=== PATIENT | female | born 1935 | race Caucasian/White ===

== ENCOUNTER 2017-08-11 06:35 | Emergency (ER) | payer OTHER ==
[~2017-08-11] VITALS: Ht 147.3 cm; Wt 68.0 kg
[~2017-08-11 06:35] MED LIST: ASPIRIN81 M1 PO; BACTRIM DS 8001 TA1 PO; COLACE100 MG PO; DURAGESIC; GLIPIZIDE5 MG PO; HYDROCODONE BIT1 T11 PO; K-DUR 2020 MEQ PO; KEFLEX500 MG PO; LIPITOR10 MG PO; METFORMIN1000 MG PO; MIRALAX17 GM/DOSE PO; NICOTINE; NUCYNTA50 MG PO; OXYCODONE5 MG PO; PERCOCET 325 MG1 TA2 PO; RAMIPRIL5 MG PO; VITAMIN D50000 I2 PO
[2017-08-11] MEDS ORDERED: NORCO 10-325 T1 EACH PO (09:20)
== END 2017-08-11 09:44 | disposition home or self-care (01) ==
LOC: ED 06:35
DX: S22.088A Other fracture of T11-T12 vertebra, initial encounter for closed fracture (principal); Z90.710 Acquired absence of both cervix and uterus; Z96.653 Presence of artificial knee joint, bilateral; Z98.890 Other specified postprocedural states; Z79.899 Other long term (current) drug therapy; W19.XXXA Unspecified fall, initial encounter; Y93.89 Activity, other specified; Y92.099 Unspecified place in other non-institutional residence as the place of occurrence of the external cause; Y99.9 Unspecified external cause status

== ENCOUNTER 2017-08-16 05:41 | Inpatient (IN) | payer OTHER, MEDICAID ==
[~2017-08-16] VITALS: Ht 147.3 cm; Wt 71.0 kg
[2017-08-16] VITALS (8 sets, daily range): BP systolic 122–154; BP diastolic 46–95
--- NOTE | ~2017-08-16 | O ---
[place], [place] OPERATIVE NOTE NAME: FREDIS PHILLIP UNIT #: [id number] ROOM: [facility] DOCTOR: TERESA TALBOT MD BIRTHDATE: [birth year] DOS: 08/18/2017 INDICATION: An 81-year-old patient who presented with a chief complaint of black tarry stool, undergoing investigation. The patient had to be transfused to be stabilized and brought to operating room for endoscopic assessment after stabilization. PROCEDURE: Today's procedure part of investigation is panendoscopy plus biopsy. PREMEDICATION: Versed and Diprivan. SCOPE: Olympus forward-viewing gastroscope Q10 video. REPORT: After putting the patient in left lateral position and application of lubricant to the scope, the scope was introduced. Thereafter, under direct visualization, advanced through the length of esophagus without difficulty. As I approached esophagogastric junction, evidence of esophagitis converse to reflux, distal esophageal ulcerations. With care, the scope was negotiated into his gastric chamber and large volume of the gastric secretions are mixed with blood was suctioned out to prevent aspiration. As I approached toward the antrum, noticed numerous deeply scarred ulcerations and as I negotiated the scope toward the pyloric ring, large clot obstructing the gastric outlet. This was not dismantled. Biopsy and photographic series obtained from numerous ulcers and the patient was extubated, tolerated procedure well. 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 PLAN AND DISCUSSION: We are going to keep this patient on PPI, transfusion and stabilization and we are going to organize a transfer to tertiary center in case surgical exploration becomes eminent. [place], [place] OPERATIVE NOTE NAME: FREDIS PHILLIP UNIT #: [id number] ROOM: [facility] DOCTOR: TERESA TALBOT MD BIRTHDATE: [birth year] TERESA TALBOT MD CM:OPRECORD:OPERATIVE NOTE [id number] TERESA TALBOT MD 08/18/171854 interface
--- NOTE | ~2017-08-16 | CON ---
[place], [place] REPORT OF CONSULTATION NAME: FREDIS PHILLIP UNIT #: [id number] ROOM: [facility] DOCTOR: TERESA TALBOT MD BIRTHDATE: [birth year] DOS: 08/18/2017 GASTROENDOSCOPY CONSULTATION HISTORY OF PRESENT ILLNESS: This is an 81-year-old patient who has been admitted with black tarry stool, undergoing investigation. The patient's H and H was 10 and 32 and has dropped and she continued to have black stool. She is status post transfusion, H and H stopped at 8 and 26. On comprehensive metabolic panel, electrolytes, potassium of 3.3 has been addressed. Liver function test normal. Her albumin is 2.7. Chest x-ray, cardiomegaly with mild pulmonary congestion. Troponin was negative. Her recent CT scan of the abdomen and pelvis without contrast was assessed and mild stranding about the gastric antrum and proximal duodenum, possibility of ulceration in differential diagnosis, also diverticulosis without evidence of diverticulitis identified. PAST MEDICAL HISTORY: Hypertension, hyperglycemia, cystocele, hyperlipidemia, and lumbar disk. PAST SURGICAL HISTORY: Bladder, knee arthroscopies, cholecystectomy, and hysterectomy. SOCIAL HISTORY: Nonsmoker and nonalcohol consumer. FAMILY HISTORY: Noncontributory. ALLERGIES: To no known medications. MEDICATIONS: List reviewed and on the list of home medication, I did not see any offending recorded anticoagulants. REVIEW OF SYSTEMS: HEENT: Denies double vision, blurred vision. RESPIRATORY: Denies acute shortness of breath. CARDIOVASCULAR: Denies acute chest pain. DIGESTIVE SYSTEM: Black tarry stool. No hematemesis. PHYSICAL EXAMINATION: VITAL SIGNS: Stable. GENERAL: Pale patient, appropriate for the age. HEENT: Head normocephalic, nontraumatic. Mouth and buccal mucosa benign. NECK: Supple. No thyromegaly, no cervical lymphadenopathy. CHEST: Symmetric anatomy. No wheeze, no rhonchi. HEART: Normal sinus rhythm. No gallop, no murmur. ABDOMEN: Soft. No hepato-organomegaly. Bowel sounds present. EXTREMITIES: Dry. No cyanosis, no pedal edema. NEUROLOGIC: Alert and oriented. LABORATORY DATA: Labs reviewed, records reviewed, data reviewed. IMPRESSION: Gastrointestinal bleed, drop in hemoglobin and hematocrit, status [place], [place] REPORT OF CONSULTATION NAME: FREDIS PHILLIP UNIT #: [id number] ROOM: [facility]- DOCTOR: ANTIONE PANDEY,TERESA BIRTHDATE: [birth year] post transfusion. PLAN AND DISCUSSION: We are going to organize endoscopy of upper GI, ruling out peptic ulcer disease with abnormalities related to the CT scan as outlined. In addition, we are going to consider treatment of E. coli with UTI of greater than 100, antibiotic on board. Endoscopy today and reassessment. OTHER ADJUNCTIVE DIAGNOSES: As outlined in paragraph of past medical and surgical history. Thank you very much indeed for your kind referral. TERESA TALBOT MD CM:CONSTR:REPORT OF CONSULTATION 1728 08/19/17 0303 interface
[~2017-08-16 05:41] MED LIST changes: +NORCO 10-325 T1 EACH PO
[2017-08-16 06:19] LABS: BASO % 0.3 % (0.0-1.0); EOS # 0.2 10*3/uL (0.0-0.4); HEMATOCRIT 32.8 % (37.0-47.0); HEMOGLOBIN 10.8 g/dl (12.0-16.0); LYMPH % 17.7 % (27.0-41.0); MEAN CELL VOLUME 101.9 fl (81.0-99.0); MEAN CORPUSCULAR HGB 33.5 pg (27.0-31.0); MEAN CORPUSCULAR HGB CONC 32.9 g/dl (33.0-37.0); MEAN PLATELET VOLUME 10.4 fl (9.6-12.3); MONO # 0.7 10*3/uL (0.1-1.0); NEUT # 8.3 10*3/uL (2.3-7.9); NEUT % 73.7 % (47.0-73.0); PLATELET COUNT AUTOMATED 216 10*3/uL (130-400); RED BLOOD COUNT 3.22 10*6/uL (4.10-5.10); RED CELL DISTRI WIDTH 12.9 % (0-14.5); WHITE BLOOD COUNT 11.2 10*3/uL (4.8-10.8)
[2017-08-16 06:28] LABS: ACT PARTIAL THROMBO TIME 31.2 SECONDS (20.8-31.5)
[2017-08-16 06:41] LABS: ALBUMIN 2.7 gm/dl (3.1-4.5); ALKALINE PHOSPHATASE 105 U/L (45-117); BUN 27 mg/dl (7-24); CHLORIDE 108 mmol/L (98-107); POTASSIUM 3.3 mmol/L (3.5-5.1); SGOT/AST 14 IU/L (3-35); SGPT/ALT 16 U/L (12-78); SODIUM 142 mmol/L (136-145); TOTAL PROTEIN 6.2 gm/dL (6.4-8.2); TROPONIN I < 0.015 ng/ml (<0.045)
[2017-08-16 08:56] LABS: BILIRUBIN NEGATIVE (NEGATIVE); BLOOD 3+ (NEGATIVE); CLARITY SL CLOUDY (CLEAR); COLOR YELLOW (YELLOW); GLUCOSE NEGATIVE (NEGATIVE); KETONE TRACE (NEGATIVE); LEUKO ESTERASE TRACE (NEGATIVE); NITRITE POSITIVE (NEGATIVE); PH 6.5 (5.0-9.0); SPECIFIC GRAVITY <= 1.005 (1.005-1.030); UROBILINOGEN 0.2 E.U./dl (0.2-1.0)
[2017-08-16 09:05] LABS: BACTERIA 4+; EPITHELIAL CELLS 15-20
[2017-08-16 09:07] LABS: RBC 21-30 rbc/hpf (0-2); WBC 31-40 wbc/hpf (0-5)
[2017-08-16] MEDS ORDERED: NORCO 10-325 T1 EACH PO (19:48)
[2017-08-17] VITALS: BP 128/58
[2017-08-17 06:52] LABS: BASO % 0.3 % (0.0-1.0); EOS # 0.7 10*3/uL (0.0-0.4); EOS % 7.4 % (1.0-4.0); HEMATOCRIT 30.7 % (37.0-47.0); HEMOGLOBIN 9.9 g/dl (12.0-16.0); LYMPH # 1.5 10*3/uL (1.3-4.4); LYMPH % 16.8 % (27.0-41.0); MEAN CELL VOLUME 104.8 fl (81.0-99.0); MEAN CORPUSCULAR HGB 33.8 pg (27.0-31.0); MEAN CORPUSCULAR HGB CONC 32.2 g/dl (33.0-37.0); MEAN PLATELET VOLUME 10.6 fl (9.6-12.3); MONO # 0.5 10*3/uL (0.1-1.0); MONO % 5.5 % (3.0-9.0); NEUT # 6.2 10*3/uL (2.3-7.9); NEUT % 69.5 % (47.0-73.0); PLATELET COUNT AUTOMATED 226 10*3/uL (130-400); RED BLOOD COUNT 2.93 10*6/uL (4.10-5.10); RED CELL DISTRI WIDTH 12.7 % (0-14.5); WHITE BLOOD COUNT 8.9 10*3/uL (4.8-10.8)
[2017-08-17 07:14] LABS: BUN 21 mg/dl (7-24); CHLORIDE 108 mmol/L (98-107); CHOLESTEROL 111 mg/dL (<200); CREATININE 0.77 mg/dL (0.55-1.02); PHOSPHOROUS 2.4 mg/dL (2.5-4.9); POTASSIUM 3.5 mmol/L (3.5-5.1); SODIUM 143 mmol/L (136-145)
[2017-08-17 07:22] LABS: FREE T4 1.06 ng/dl (0.76-1.46); HDL CHOLESTEROL 40 mg/dl (40-60); LDL CHOLESTEROL 50 mg/dL (9-159); TRIGLYCERIDES 107 mg/dl (<150); VLDL CHOLESTEROL 21 mg/dL (6-40)
[2017-08-17 08:00] VITALS: BP 124/50
[2017-08-17 08:18] LABS: VITAMIN D, 25-HYDROXY 48.3 ng/mL (30-100)
[2017-08-17 12:00] VITALS: BP 131/48
[2017-08-17 16:00] VITALS: BP 153/42
[2017-08-17] MEDS ORDERED: AMBIEN10 M1 PO (16:10)
[2017-08-17] MEDS ORDERED: IBU800 M1 PO (16:11)
[2017-08-17] MEDS ORDERED: ARICEPT5 M1 PO (16:12)
[2017-08-17] MEDS ORDERED: MIRAPEX0.5 MG PO (16:12)
[2017-08-17 19:46] VITALS: BP 150/61
[2017-08-18] VITALS (9 sets, daily range): BP systolic 143–158; BP diastolic 46–57
[2017-08-18 05:58] LABS: BUN 26 mg/dl (7-24); CHLORIDE 104 mmol/L (98-107); CREATININE 0.67 mg/dL (0.55-1.02); POTASSIUM 3.6 mmol/L (3.5-5.1); SODIUM 143 mmol/L (136-145)
[2017-08-18 06:02] LABS: BASO % 0.3 % (0.0-1.0); HEMATOCRIT 30.2 % (37.0-47.0); HEMOGLOBIN 9.8 g/dl (12.0-16.0); LYMPH # 1.9 10*3/uL (1.3-4.4); LYMPH % 16.1 % (27.0-41.0); MEAN CELL VOLUME 102.4 fl (81.0-99.0); MEAN CORPUSCULAR HGB 33.2 pg (27.0-31.0); MEAN CORPUSCULAR HGB CONC 32.5 g/dl (33.0-37.0); MEAN PLATELET VOLUME 10.9 fl (9.6-12.3); MONO # 0.4 10*3/uL (0.1-1.0); MONO % 3.2 % (3.0-9.0); NEUT # 9.2 10*3/uL (2.3-7.9); NEUT % 79.3 % (47.0-73.0); PLATELET COUNT AUTOMATED 271 10*3/uL (130-400); RED BLOOD COUNT 2.95 10*6/uL (4.10-5.10); RED CELL DISTRI WIDTH 12.5 % (0-14.5); WHITE BLOOD COUNT 11.6 10*3/uL (4.8-10.8)
[2017-08-18 12:20] LABS: BASO % 0.3 % (0.0-1.0); EOS % 0.2 % (1.0-4.0); HEMATOCRIT 26.1 % (37.0-47.0); HEMOGLOBIN 8.2 g/dl (12.0-16.0); LYMPH # 1.6 10*3/uL (1.3-4.4); LYMPH % 15.3 % (27.0-41.0); MEAN CELL VOLUME 103.2 fl (81.0-99.0); MEAN CORPUSCULAR HGB 32.4 pg (27.0-31.0); MEAN CORPUSCULAR HGB CONC 31.4 g/dl (33.0-37.0); MEAN PLATELET VOLUME 10.9 fl (9.6-12.3); MONO # 0.6 10*3/uL (0.1-1.0); MONO % 5.5 % (3.0-9.0); NEUT # 8.3 10*3/uL (2.3-7.9); NEUT % 77.8 % (47.0-73.0); PLATELET COUNT AUTOMATED 230 10*3/uL (130-400); RED BLOOD COUNT 2.53 10*6/uL (4.10-5.10); RED CELL DISTRI WIDTH 12.5 % (0-14.5); WHITE BLOOD COUNT 10.7 10*3/uL (4.8-10.8)
[2017-08-19] VITALS: BP 112/42
== END 2017-08-19 02:41 | disposition short-term general hospital (02) | DRG 551 ==
LOC: ED 05:41 → 5E 09:25 → EDHOLD 09:25 → 5E 10:01 → ICCU 08-18 04:55
PROVIDERS: Emergency Medicine Emergency Medical Services; Student in an Organized Health Care Education/Training Program
PROC: 0DB68ZX Excision of Stomach, Via Natural or Artificial Opening Endoscopic, Diagnostic (ICD-10-PCS; principal; 2017-08-18)
DX: S22.009A Unspecified fracture of unspecified thoracic vertebra, initial encounter for closed fracture (principal); E43 Unspecified severe protein-calorie malnutrition; K22.11 Ulcer of esophagus with bleeding; K25.4 Chronic or unspecified gastric ulcer with hemorrhage; E87.5 Hyperkalemia; E11.65 Type 2 diabetes mellitus with hyperglycemia; E87.8 Other disorders of electrolyte and fluid balance, not elsewhere classified; K29.91 Gastroduodenitis, unspecified, with bleeding; I10 Essential (primary) hypertension; E83.41 Hypermagnesemia; K21.0 Gastro-esophageal reflux disease with esophagitis; D72.829 Elevated white blood cell count, unspecified; D53.9 Nutritional anemia, unspecified; D72.9 Disorder of white blood cells, unspecified; R82.71 Bacteriuria; E78.5 Hyperlipidemia, unspecified; Z96.653 Presence of artificial knee joint, bilateral; W18.39XA Other fall on same level, initial encounter; Y93.89 Activity, other specified; Y92.89 Other specified places as the place of occurrence of the external cause; Y99.8 Other external cause status; Z68.32 Body mass index [BMI] 32.0-32.9, adult; Z79.84 Long term (current) use of oral hypoglycemic drugs; Z79.899 Other long term (current) drug therapy; Z90.49 Acquired absence of other specified parts of digestive tract; Z90.710 Acquired absence of both cervix and uterus; Z87.891 Personal history of nicotine dependence; Z82.49 Family history of ischemic heart disease and other diseases of the circulatory system

== ENCOUNTER 2019-05-12 19:39 | Inpatient (IN) | payer OTHER, MEDICAID ==
[~2019-05-12] VITALS: Ht 157.4 cm; Wt 72.8 kg
--- NOTE | ~2019-05-12 | EKG ---
[place], [place] ELECTROCARDIOGRAM REPORT NAME: FREDIS PHILLIP UNIT #: [id number] ROOM: 510 DOCTOR: EPIPHANY DRAFT REPORT BIRTHDATE: [birth year] [facility] Test Date: 2019-05-12 Test Time: 20:05:17 Pat Name: FREDIS PHILLIP Department: Room: 510 Gender: F [employer]ooter: : 1935 Requested By: RAFFAELE SERRANO Order Number: [id number] Reading MD: Kassandra Thomas MD Measurements Intervals [place] Rate: 98 P: -50 NE: 193 QRS: -2 QRSD: 78 T: 15 QT: 342 QTc: 437 Interpretive Statements Sinus or ectopic atrial rhythm Low voltage, precordial leads Compared to ECG 05/12/2018 00:40:49 Ectopic atrial rhythm now present Atrial flutter no longer present Electronically Signed On 05-21-2019 10:18:35 PDT by Kassandra Thomas MD CM:EKGRPT:ELECTROCARDIOGRAM REPORT [id number] [phone] RAFFAELE SERRANO MD EPIPHANY DRAFT REPORT RAFFAELE SERRANO MD
[~2019-05-12 19:39] MED LIST changes: +AMBIEN10 M1 PO; +ARICEPT5 M1 PO; +GLUCOTROL XL2.5 MG PO; +IBU800 M1 PO; +MIRAPEX0.5 MG PO; +POTASSIUM CHLO10 ME5 PO; +PROTONIX20 MG PO; +RAMIPRIL2.5 MG PO
[2019-05-12] MEDS ORDERED: FUROSEMIDE40 MG PO (19:43)
[2019-05-12] MEDS ORDERED: MOBIC15 MG PO (19:44)
[2019-05-12 19:45] VITALS: BP 143/79
[2019-05-12] MEDS ORDERED: MECLIZINE HCL25 M2 PO (19:45)
[2019-05-12] MEDS ORDERED: BACLOFEN5 MG PO (19:46)
--- NOTE | 2019-05-12 19:47 | NUR ---
PT SENT DIRECT FROM ROOM [address]
[2019-05-12 20:31] VITALS: BP 138/66
[2019-05-12 20:36] LABS: BASO # 0.1 10*3/uL (0.0-0.1); BASO % 0.7 % (0.0-1.0); EOS # 0.3 10*3/uL (0.0-0.4); EOS % 4.5 % (1.0-4.0); HEMATOCRIT 42.6 % (37.0-47.0); HEMOGLOBIN 13.8 g/dl (12.0-16.0); LYMPH # 2.8 10*3/uL (1.3-4.4); LYMPH % 37.8 % (27.0-41.0); MEAN CELL VOLUME 104.7 fl (81.0-99.0); MEAN CORPUSCULAR HGB 33.9 pg (27.0-31.0); MEAN CORPUSCULAR HGB CONC 32.4 g/dl (33.0-37.0); MEAN PLATELET VOLUME 10.8 fl (9.6-12.3); MONO # 0.6 10*3/uL (0.1-1.0); MONO % 8.1 % (3.0-9.0); NEUT # 3.6 10*3/uL (2.3-7.9); NEUT % 48.5 % (47.0-73.0); PLATELET COUNT AUTOMATED 191 10*3/uL (130-400); RED BLOOD COUNT 4.07 10*6/uL (4.10-5.10); RED CELL DISTRI WIDTH 13.1 % (0-14.5); WHITE BLOOD COUNT 7.4 10*3/uL (4.8-10.8)
[2019-05-12 20:51] LABS: ALBUMIN 3.4 gm/dl (3.1-4.5); ALKALINE PHOSPHATASE 97 U/L (45-117); BUN 21 mg/dl (7-24); CHLORIDE 106 mmol/L (98-107); CREATININE 1.13 mg/dL (0.55-1.02); LIPASE 115 U/L (73-393); POTASSIUM 4.1 mmol/L (3.5-5.1); SGOT/AST 27 IU/L (3-35); SGPT/ALT 14 U/L (12-78); SODIUM 138 mmol/L (136-145); TOTAL PROTEIN 7.7 gm/dL (6.4-8.2)
[2019-05-12 20:53] LABS: TROPONIN I < 0.015 ng/ml (<0.045)
[2019-05-12 20:57] LABS: BILIRUBIN NEGATIVE (NEGATIVE); BLOOD NEGATIVE (NEGATIVE); CLARITY SL CLOUDY (CLEAR); COLOR YELLOW (YELLOW); GLUCOSE NEGATIVE (NEGATIVE); KETONE NEGATIVE (NEGATIVE); LEUKO ESTERASE NEGATIVE (NEGATIVE); NITRITE NEGATIVE (NEGATIVE); SPECIFIC GRAVITY 1.015 (1.005-1.030); UROBILINOGEN 0.2 E.U./dl (0.2-1.0)
[2019-05-12 21:22] LABS: BACTERIA TRACE; WBC 0-2 wbc/hpf (0-5)
[2019-05-12 21:23] LABS: ACT PARTIAL THROMBO TIME 25.6 SECONDS (20.0-32.1); INTERNATIONAL NORM RATIO 0.9 (2.0-3.5)
[2019-05-12 21:50] VITALS: BP 128/44
--- NOTE | 2019-05-12 21:50 | NUR ---
PT ALERT TO PERSON AND PLACE AT THIS TIME DAUGHTER AT BEDSIDE PT GIVEN PILLOW AND WARM BLANKETS PLACED IN POSITION OF COMFORT BED RAILS UP X 2
--- NOTE | 2019-05-12 22:18 | NUR ---
FAMILY LEAVES CONTACT# DAUGHTERJUS, (HOME) AND SUMI# [phone] (CELL)
[2019-05-12 22:44] VITALS: BP 141/73
--- NOTE | 2019-05-12 22:55 | NUR ---
PT IS NOW ALERT AND IS RECIEVING A BREATHING TX PRIOR TO BEING ADMITTED TO FLOOR
[2019-05-12 23:09] VITALS: BP 125/67
--- NOTE | 2019-05-12 23:09 | NUR ---
A 83, admitted to , under the services of LUDNI Adhikari DO with a diagnosis of ALTERED MENTAL STATUS. Chief complaint is CONFUSION STATING AT 1600. Patient arrived via stretcher from ER. Monitor applied. Initial assessment completed. Vital signs taken and recorded. LUDIN ADHIKARI DO notified of admission to the unit. Orders received. See assessment for past medical history, medications and allergies. Patient and/or family oriented to unit. [facility] visitation policy reviewed. Clothing/patient valuable form completed. JUS TOMPKINS
--- NOTE | 2019-05-13 00:30 | NUR ---
PATIENT UNSURE OF MEDICATIONS. STATED HER SON GETS THEM FOR HER WHEN NEEDED. "HE JUST CALLS THE PHARMACY."
--- NOTE | 2019-05-13 03:30 | NUR ---
PATIENT AGGITATED , PULLING TEACHER DRAMA OFF. GETTING OUT OF BED AND SETTING TEACHER DRAMA OFF. HALDOL 0.5 MG GIVEN IM PER ONE TIME ORDER.
--- NOTE | 2019-05-13 04:19 | NUR ---
SABINO MYERS SITTING WITH PATIENT. SMALL IF ANY IMPROVEMENT IN BEHAVIOR.
[2019-05-13 06:38] LABS: BASO % 0.2 % (0.0-1.0); EOS # 0.1 10*3/uL (0.0-0.4); EOS % 1.1 % (1.0-4.0); HEMATOCRIT 35.5 % (37.0-47.0); HEMOGLOBIN 11.5 g/dl (12.0-16.0); LYMPH # 1.5 10*3/uL (1.3-4.4); LYMPH % 16.7 % (27.0-41.0); MEAN CELL VOLUME 103.8 fl (81.0-99.0); MEAN CORPUSCULAR HGB 33.6 pg (27.0-31.0); MEAN CORPUSCULAR HGB CONC 32.4 g/dl (33.0-37.0); MONO # 0.6 10*3/uL (0.1-1.0); MONO % 6.8 % (3.0-9.0); NEUT # 6.6 10*3/uL (2.3-7.9); NEUT % 74.9 % (47.0-73.0); PLATELET COUNT AUTOMATED 159 10*3/uL (130-400); RED BLOOD COUNT 3.42 10*6/uL (4.10-5.10); RED CELL DISTRI WIDTH 13.2 % (0-14.5); WHITE BLOOD COUNT 8.8 10*3/uL (4.8-10.8)
[2019-05-13 07:02] LABS: BUN 15 mg/dl (7-24); CHLORIDE 112 mmol/L (98-107); CREATININE 0.92 mg/dL (0.55-1.02); FREE T4 0.83 ng/dl (0.76-1.46); PHOSPHOROUS 2.1 mg/dL (2.5-4.9); POTASSIUM 3.9 mmol/L (3.5-5.1); SGOT/AST 12 IU/L (3-35); SGPT/ALT 12 U/L (12-78); SODIUM 141 mmol/L (136-145); TOTAL PROTEIN 6.6 gm/dL (6.4-8.2)
[2019-05-13 07:07] LABS: ALKALINE PHOSPHATASE 70 U/L (45-117); THYROID STIM HORMONE (HS) 0.806 uIU/ml (0.358-4.75)
--- NOTE | 2019-05-13 11:30 | NUR ---
Occupational Therapy evaluation completed on 5 with full eval to follow. Precautions include fall risk; unsteady in standing,chair alarm,arteaga catheter,moderate complexity level 41823. Recommend OT per POC and return home with 24 hr supervision and home health if goals met as established or patient may need SNF. Thank you. Rodo Mays OTR/L
--- NOTE | 2019-05-13 11:30 | NUR ---
Occupational Therapy evaluation completed on 5 with full eval to follow. Precautions include arteaga,IV UE,occasional loss of balance with recovery in standing with walker, fall risk, low complexity level 67877. Recommend return home with home health SN, and OT for home safety in the home and PT eval. Thank you. Rodo Mays OTR/L
--- NOTE | 2019-05-13 11:49 | NUR ---
Sports Director in to talk to patient. Patient states lives at HOME with SONS. There are FEW steps in the home. Physician: HELENE Pharmacy: [facility] Home health services: NONE Patient's level of ADLs: INDEPENDENT Patient has working utilities: YES DME: [facility] [employer] [facility] Follow-up physician's appointment after d/c: WILL BE MADE BY HOSPITALIST NURSE DIRECTOR ON DISCHARGE Does patient want to access PORTAL?: NO Discharge plan PT LIVES AT HOME WITH HER 2 SONS. STATES SHE IS INDEPENDENT IN HIS CARE. PT DENIES HE WILL HAVE NEEDS ON DISCHARGE. WILL TALK TO SONS. WILL CONTINUE TO FOLLOW. WILL HAVE A RIDE HOME.. NISHANT HERNANDEZ
[2019-05-13 12:00] VITALS: BP 121/65
--- NOTE | 2019-05-13 15:50 | NUR ---
PHYSICAL THERAPY Physical therapy evaluation attempted. Patient resting at this time. PT evaluation not performed at this time per nursing request to allow patient to rest. Nursing reports that patient has been getting up/down with one assist this date. Will attempt PT evaluation at a later date. Thank you. Yesy Zamarripa,PT,DPT
--- NOTE | 2019-05-13 15:55 | NUR ---
PT BEHAVIOR IS PLEASANT TODAY. SHE IS COOPERATIVE WITH 1 ASSIST. FOLLOWS INSTRUCTIONS. NAPPING AT THIS TIME.
[2019-05-13 16:00] VITALS: BP 122/68
[2019-05-13 20:00] VITALS: BP 152/53
[2019-05-14] VITALS: BP 114/35
[2019-05-14 06:40] LABS: BASO % 0.4 % (0.0-1.0); EOS # 0.3 10*3/uL (0.0-0.4); EOS % 5.5 % (1.0-4.0); HEMATOCRIT 34.6 % (37.0-47.0); HEMOGLOBIN 11.1 g/dl (12.0-16.0); LYMPH # 1.3 10*3/uL (1.3-4.4); LYMPH % 26.3 % (27.0-41.0); MEAN CELL VOLUME 105.2 fl (81.0-99.0); MEAN CORPUSCULAR HGB 33.7 pg (27.0-31.0); MEAN CORPUSCULAR HGB CONC 32.1 g/dl (33.0-37.0); MEAN PLATELET VOLUME 11.3 fl (9.6-12.3); MONO # 0.4 10*3/uL (0.1-1.0); NEUT % 59.4 % (47.0-73.0); PLATELET COUNT AUTOMATED 158 10*3/uL (130-400); RED BLOOD COUNT 3.29 10*6/uL (4.10-5.10); RED CELL DISTRI WIDTH 13.2 % (0-14.5); WHITE BLOOD COUNT 5.1 10*3/uL (4.8-10.8)
[2019-05-14 07:03] LABS: BUN 11 mg/dl (7-24); CHLORIDE 112 mmol/L (98-107); CREATININE 0.79 mg/dL (0.55-1.02); PHOSPHOROUS 2.8 mg/dL (2.5-4.9); POTASSIUM 3.6 mmol/L (3.5-5.1); SODIUM 142 mmol/L (136-145)
[2019-05-14 08:00] VITALS: BP 118/58
[2019-05-14 12:00] VITALS: BP 111/54
[2019-05-14] MEDS ORDERED: ASPIRIN CHEWABL81 MG PO (14:14)
--- NOTE | 2019-05-14 15:07 | NUR ---
Discharge instructions reviewed with patient/family. Patient receptive and verbalizes understanding. Follow-up care arranged. Written instructions given to patient/family. MALACHI HILTON
== END 2019-05-14 15:07 | disposition home or self-care (01) | DRG 70 ==
LOC: ED 19:39 → EDHOLD 22:30 → 5E 22:30
PROVIDERS: Emergency Medicine Emergency Medical Services; Family Medicine; Internal Medicine; ADMIT Internal Medicine
DX: G93.41 Metabolic encephalopathy (principal); N17.0 Acute kidney failure with tubular necrosis; E44.0 Moderate protein-calorie malnutrition; J40 Bronchitis, not specified as acute or chronic; K27.9 Peptic ulcer, site unspecified, unspecified as acute or chronic, without hemorrhage or perforation; E11.65 Type 2 diabetes mellitus with hyperglycemia; I10 Essential (primary) hypertension; E78.5 Hyperlipidemia, unspecified; G89.29 Other chronic pain; G25.81 Restless legs syndrome; G47.00 Insomnia, unspecified; Z96.653 Presence of artificial knee joint, bilateral; K21.9 Gastro-esophageal reflux disease without esophagitis; R29.6 Repeated falls; R41.0 Disorientation, unspecified; F03.90 Unspecified dementia, unspecified severity, without behavioral disturbance, psychotic disturbance, mood disturbance, and anxiety; I48.91 Unspecified atrial fibrillation; Z79.01 Long term (current) use of anticoagulants; Z79.4 Long term (current) use of insulin; Z90.49 Acquired absence of other specified parts of digestive tract; Z90.710 Acquired absence of both cervix and uterus; Z82.49 Family history of ischemic heart disease and other diseases of the circulatory system; Z68.29 Body mass index [BMI] 29.0-29.9, adult

== ENCOUNTER 2024-11-22 19:07 | Emergency (ER) | payer MEDICARE ==
[~2024-11-22] VITALS: Ht 162.5 cm; Wt 65.8 kg
[~2024-11-22 19:07] MED LIST changes: +ASPIRIN CHEWABL81 MG PO; +BACLOFEN5 MG PO; +Carafate1 GM PO; +FUROSEMIDE40 MG PO; +HYDROCODONE-AC1 EAC1 PO; +MECLIZINE HCL25 M2 PO; +MOBIC15 MG PO; +PROTONIX TR40 M1 PO; +VITAMIN B121000 MC3 PO; +VITAMIN D3125 MC1 PO
[2024-11-22 19:36] LABS: MEAN CELL VOLUME 110.4 fl (81.0-99.0); MEAN CORPUSCULAR HGB 36.2 pg (27.0-31.0); MEAN CORPUSCULAR HGB CONC 32.8 g/dl (33.0-37.0); MEAN PLATELET VOLUME 10.3 fl (9.6-12.3); PLATELET COUNT AUTOMATED 221 10*3/uL (130-400); RED BLOOD COUNT 3.26 10*6/uL (4.10-5.10); RED CELL DISTRI WIDTH 13.1 % (0-14.5)
[2024-11-22 19:42] LABS: MANUAL DIFF REFLEX YES
[2024-11-22 19:57] LABS: ALKALINE PHOSPHATASE 76 U/L (46-116); BUN 16 mg/dl (9-23); CHLORIDE 103 mmol/L (98-107); LIPASE 24 U/L (12-53); POTASSIUM 3.7 mmol/L (3.4-5.1); SGPT/ALT 10 U/L (5-49); TOTAL PROTEIN 6.5 gm/dL (6.0-8.0)
[2024-11-22 19:58] LABS: BASOPHILS 1 % (0-1); PLATELET SUFFICIENCY NORMAL (NORMAL); TOTAL CELLS COUNTED 100 #CELLS
[2024-11-22 19:59] LABS: OVALOCYTES FEW; ROULEAUX SLIGHT
[2024-11-22 21:21] LABS: BILIRUBIN Negative (Negative); BLOOD Negative (Negative); CLARITY Clear (Clear); COLOR Yellow (Yellow); GLUCOSE Negative (Negative); KETONE Trace (Negative); LEUKO ESTERASE Negative (Negative); NITRITE Negative (Negative); SPECIFIC GRAVITY 1.025 (1.001-1.030)
[2024-11-22 21:25] LABS: PH 8.5 (4.5-8.0)
[2024-11-22 21:27] LABS: BACTERIA TRACE
[2024-11-22] MEDS ORDERED: Ciprofloxacin Hydrochloride 500 MG TAB PO ONE (22:20)
[2024-11-22] MEDS ORDERED: methylPREDNISolone sod succ 125 MG VIAL IM ONE (22:20)
[2024-11-22] MEDS ORDERED: metroNIDAZOLE 500 MG TAB PO ONE (22:25)
[2024-11-23] MEDS ORDERED: CIPRO500 MG PO (00:18)
[2024-11-23] MEDS ORDERED: PREDNISONE20 M1 PO (00:18)
[2024-11-23] MEDS ORDERED: METRONIDAZOLE500 M1 PO (00:18)
== END 2024-11-23 00:52 | disposition home or self-care (01) ==
LOC: ED 19:07
PROVIDERS: Internal Medicine
DX: S81.802A Unspecified open wound, left lower leg, initial encounter (principal); K51.90 Ulcerative colitis, unspecified, without complications; D53.9 Nutritional anemia, unspecified; E44.1 Mild protein-calorie malnutrition; F02.80 Dementia in other diseases classified elsewhere, unspecified severity, without behavioral disturbance, psychotic disturbance, mood disturbance, and anxiety; E78.00 Pure hypercholesterolemia, unspecified; E11.9 Type 2 diabetes mellitus without complications; Z79.899 Other long term (current) drug therapy; Z90.49 Acquired absence of other specified parts of digestive tract; Z90.710 Acquired absence of both cervix and uterus; Z90.89 Acquired absence of other organs; Z98.890 Other specified postprocedural states; X58.XXXA Exposure to other specified factors, initial encounter; Y93.89 Activity, other specified; Y92.89 Other specified places as the place of occurrence of the external cause; Y99.8 Other external cause status

== ENCOUNTER 2024-12-13 18:03 | Emergency (ER) | payer MEDICARE ==
[~2024-12-13] VITALS: Ht 147.3 cm; Wt 59.9 kg
[~2024-12-13 18:03] MED LIST changes: +CIPRO500 MG PO; +METRONIDAZOLE500 M1 PO; +PREDNISONE20 M1 PO
[2024-12-13] MEDS ORDERED: IOHEXOL 300 MG/ML 100 ML VIAL IV ONE (18:20)
[2024-12-13 18:45] LABS: HEMATOCRIT 35.9 % (37.0-47.0); MEAN CELL VOLUME 111.5 fl (81.0-99.0); MEAN CORPUSCULAR HGB 34.8 pg (27.0-31.0); MEAN CORPUSCULAR HGB CONC 31.2 g/dl (33.0-37.0); MEAN PLATELET VOLUME 10.4 fl (9.6-12.3); PLATELET COUNT AUTOMATED 199 10*3/uL (130-400); RED BLOOD COUNT 3.22 10*6/uL (4.10-5.10); RED CELL DISTRI WIDTH 13.2 % (0-14.5); WHITE BLOOD COUNT 5.7 10*3/uL (4.8-10.8)
[2024-12-13 18:48] LABS: MANUAL DIFF REFLEX YES
[2024-12-13 18:58] LABS: ACT PARTIAL THROMBO TIME 25.7 SECONDS (20.0-32.1)
[2024-12-13 19:15] LABS: ALKALINE PHOSPHATASE 94 U/L (46-116); BUN 12 mg/dl (9-23); CHLORIDE 108 mmol/L (98-107); ETHYL ALCOHOL < 3.0 mg/dl (<3); LIPASE 28 U/L (12-53); SGPT/ALT 12 U/L (5-49); TOTAL PROTEIN 6.4 gm/dL (6.0-8.0)
[2024-12-13 19:16] LABS: BASOPHILS 1 % (0-1); TOTAL CELLS COUNTED 100 #CELLS
[2024-12-13 19:17] LABS: PLATELET SUFFICIENCY NORMAL (NORMAL)
[2024-12-13 19:20] LABS: POLYCHROMASIA SLIGHT
[2024-12-13 20:11] LABS: BILIRUBIN Negative (Negative); BLOOD Negative (Negative); CLARITY Cloudy (Clear); COLOR Yellow (Yellow); GLUCOSE Negative (Negative); KETONE Negative (Negative); LEUKO ESTERASE Negative (Negative); NITRITE Negative (Negative); SPECIFIC GRAVITY >= 1.030 (1.001-1.030)
[2024-12-13 20:18] LABS: URINE AMPHETAMINES Negative (1000ng/ml); URINE BARBITURATES Negative (200ng/ml); URINE BENZODIAZEPINES Negative (200ng/ml); URINE CANNABINOIDS (THC) Negative (50ng/ml); URINE COCAINE Negative (300ng/ml); URINE METHADONE Negative (300ng/ml); URINE OPIATES Negative (300ng/ml); URINE PHENCYCLIDINE Negative (25ng/ml)
[2024-12-13] MEDS ORDERED: Ondansetron Hydrochloride 4 MG/2 ML VIAL IV ONE (20:50)
[2024-12-13] MEDS ORDERED: CEPHALEXIN 500 MG CAP PO ONE (20:50)
[2024-12-13] MEDS ORDERED: Acetaminophen/Hydrocodone 5 MG/325 MG TABLET PO ONE (20:50)
[2024-12-13] MEDS ORDERED: POTASSIUM CHLORIDE 20 MEQ TAB PO ONE (20:55)
[2024-12-13] MEDS ORDERED: CEPHALEXIN500 M1 PO (21:10)
[2024-12-13 21:22] LABS: BACTERIA TRACE
== END 2024-12-13 21:33 | disposition home or self-care (01) ==
LOC: ED 18:03
PROVIDERS: Internal Medicine
DX: S22.000A Wedge compression fracture of unspecified thoracic vertebra, initial encounter for closed fracture (principal); E87.6 Hypokalemia; D53.9 Nutritional anemia, unspecified; E44.0 Moderate protein-calorie malnutrition; E11.9 Type 2 diabetes mellitus without complications; E78.00 Pure hypercholesterolemia, unspecified; Z79.899 Other long term (current) drug therapy; Z90.49 Acquired absence of other specified parts of digestive tract; Z90.710 Acquired absence of both cervix and uterus; Z96.653 Presence of artificial knee joint, bilateral; Z98.890 Other specified postprocedural states; W10.8XXA Fall (on) (from) other stairs and steps, initial encounter; Y93.89 Activity, other specified; Y92.89 Other specified places as the place of occurrence of the external cause; Y99.8 Other external cause status

== ENCOUNTER → 2024-12-27 | Outpatient (CLI) | payer MEDICARE ==
[~2024-12-27] MED LIST changes: +CEPHALEXIN500 M1 PO
== END ==
LOC: WOUNDCARE 00:36
PROVIDERS: ATTEND Nurse Practitioner Family
DX: I70.248 Atherosclerosis of native arteries of left leg with ulceration of other part of lower leg (principal); L97.823 Non-pressure chronic ulcer of other part of left lower leg with necrosis of muscle; L60.2 Onychogryphosis; B35.1 Tinea unguium; E44.0 Moderate protein-calorie malnutrition; D64.9 Anemia, unspecified; F17.210 Nicotine dependence, cigarettes, uncomplicated; Z90.710 Acquired absence of both cervix and uterus; Z98.890 Other specified postprocedural states; Z79.899 Other long term (current) drug therapy

== ENCOUNTER 2025-01-03 10:21 | Emergency (ER) | payer MEDICARE ==
[~2025-01-03] VITALS: Ht 149.8 cm; Wt 59.4 kg
[2025-01-03 11:03] LABS: HEMATOCRIT 31.4 % (37.0-47.0); MEAN CELL VOLUME 109.4 fl (81.0-99.0); MEAN CORPUSCULAR HGB 34.5 pg (27.0-31.0); MEAN CORPUSCULAR HGB CONC 31.5 g/dl (33.0-37.0); MEAN PLATELET VOLUME 10.6 fl (9.6-12.3); PLATELET COUNT AUTOMATED 185 10*3/uL (130-400); RED BLOOD COUNT 2.87 10*6/uL (4.10-5.10); RED CELL DISTRI WIDTH 14.1 % (0-14.5); WHITE BLOOD COUNT 7.9 10*3/uL (4.8-10.8)
[2025-01-03 11:15] LABS: MANUAL DIFF REFLEX YES
[2025-01-03 11:21] LABS: POTASSIUM 3.5 mmol/L (3.4-5.1)
[2025-01-03 11:26] LABS: ACT PARTIAL THROMBO TIME 25.8 SECONDS (20.0-32.1)
[2025-01-03 11:34] LABS: PLATELET SUFFICIENCY NORMAL (NORMAL); TOTAL CELLS COUNTED 100 #CELLS
[2025-01-03] MEDS ORDERED: Vancomycin Hydrochloride 250 ML IV ONE (12:10)
[2025-01-03] MEDS ORDERED: HEPARIN SODIUM 250 ML IV SCH (12:35)
== END 2025-01-03 15:53 | disposition short-term general hospital (02) ==
LOC: ED 10:21
PROVIDERS: Internal Medicine
DX: I77.9 Disorder of arteries and arterioles, unspecified (principal); L08.9 Local infection of the skin and subcutaneous tissue, unspecified; E11.9 Type 2 diabetes mellitus without complications; E78.00 Pure hypercholesterolemia, unspecified; Z79.899 Other long term (current) drug therapy; Z90.49 Acquired absence of other specified parts of digestive tract; Z90.710 Acquired absence of both cervix and uterus; Z98.890 Other specified postprocedural states

== ENCOUNTER → 2025-03-17 | Outpatient (CLI) | payer MEDICARE ==
[~2025-03-17] MED LIST changes: +ASPIRIN CHILDRE81 MG PO; +CLOPIDOGREL75 MG PO; +LEVOFLOXACIN750 M2 PO
== END | disposition home or self-care (01) ==
LOC: WOUNDCARE 03:15
PROVIDERS: ATTEND Nurse Practitioner Family
DX: I70.248 Atherosclerosis of native arteries of left leg with ulceration of other part of lower leg (principal); L97.823 Non-pressure chronic ulcer of other part of left lower leg with necrosis of muscle; S81.811A Laceration without foreign body, right lower leg, initial encounter; S81.801A Unspecified open wound, right lower leg, initial encounter; R60.9 Edema, unspecified; L60.2 Onychogryphosis; D64.9 Anemia, unspecified; E44.0 Moderate protein-calorie malnutrition; B35.1 Tinea unguium; F17.210 Nicotine dependence, cigarettes, uncomplicated; Z90.710 Acquired absence of both cervix and uterus; Z98.890 Other specified postprocedural states; Z79.82 Long term (current) use of aspirin; Z79.899 Other long term (current) drug therapy; X58.XXXA Exposure to other specified factors, initial encounter; Y93.89 Activity, other specified; Y92.89 Other specified places as the place of occurrence of the external cause; Y99.8 Other external cause status

== ENCOUNTER → 2025-03-24 | Outpatient (CLI) | payer MEDICARE | LOC: WOUNDCARE 02:30 | PROVIDERS: ATTEND Nurse Practitioner Family | DX: I70.248 Atherosclerosis of native arteries of left leg with ulceration of other part of lower leg (principal); L97.823 Non-pressure chronic ulcer of other part of left lower leg with necrosis of muscle; S81.811D Laceration without foreign body, right lower leg, subsequent encounter; R60.9 Edema, unspecified; L60.2 Onychogryphosis; D64.9 Anemia, unspecified; E44.0 Moderate protein-calorie malnutrition; B35.1 Tinea unguium; F17.210 Nicotine dependence, cigarettes, uncomplicated; Z90.710 Acquired absence of both cervix and uterus; Z98.890 Other specified postprocedural states; Z79.82 Long term (current) use of aspirin; Z79.899 Other long term (current) drug therapy; X58.XXXD Exposure to other specified factors, subsequent encounter ==

== ENCOUNTER → 2025-04-07 | Outpatient (CLI) | payer MEDICARE | END | disposition home or self-care (01) | LOC: WOUNDCARE 02:31 | PROVIDERS: ATTEND Nurse Practitioner Family | DX: I70.248 Atherosclerosis of native arteries of left leg with ulceration of other part of lower leg (principal); L97.823 Non-pressure chronic ulcer of other part of left lower leg with necrosis of muscle; S81.811D Laceration without foreign body, right lower leg, subsequent encounter; L60.2 Onychogryphosis; E44.0 Moderate protein-calorie malnutrition; B35.1 Tinea unguium; D64.9 Anemia, unspecified; F17.210 Nicotine dependence, cigarettes, uncomplicated; Z90.710 Acquired absence of both cervix and uterus; Z98.890 Other specified postprocedural states; Z79.82 Long term (current) use of aspirin; Z79.899 Other long term (current) drug therapy; X58.XXXD Exposure to other specified factors, subsequent encounter ==

== ENCOUNTER → 2025-04-26 | Outpatient (CLI) | payer MEDICARE | END | disposition home or self-care (01) | LOC: WOUNDCARE 02:37 | PROVIDERS: ATTEND Nurse Practitioner Family | DX: S81.811D Laceration without foreign body, right lower leg, subsequent encounter (principal); I70.248 Atherosclerosis of native arteries of left leg with ulceration of other part of lower leg; L97.823 Non-pressure chronic ulcer of other part of left lower leg with necrosis of muscle; L60.2 Onychogryphosis; D64.9 Anemia, unspecified; B35.1 Tinea unguium; E44.0 Moderate protein-calorie malnutrition; F17.210 Nicotine dependence, cigarettes, uncomplicated; Z90.710 Acquired absence of both cervix and uterus; Z98.890 Other specified postprocedural states; Z79.82 Long term (current) use of aspirin; Z79.899 Other long term (current) drug therapy; X58.XXXD Exposure to other specified factors, subsequent encounter ==